=== PATIENT | female | born 1980 | race Two or more races ===

== ENCOUNTER 2021-09-02 12:12 | Inpatient (IN) | payer OTHER ==
[2021-09-02] MEDS ORDERED: MAGNESIUM HYDROX 2400MG/30ML ORAL SUSPENSION 30 ML CUP PO PRN (15:03)
[2021-09-02] MEDS ORDERED: ONDANSETRON *ODT* 4 MG TABLET SL PRN (15:03)
[2021-09-02] MEDS ORDERED: BISMUTH SUBSALICYLATE 524 MG/30 ML PO PRN (15:03)
[2021-09-02] MEDS ORDERED: NICOTINE POLACRILEX 4 MG GUM BUC PRN (15:03)
[2021-09-02] MEDS ORDERED: DICYCLOMINE HCL 10 MG CAPSULE PO PRN (15:03)
[2021-09-02] MEDS ORDERED: IBUPROFEN 400 MG TABLET (FP) PO PRN (15:03)
[2021-09-02] MEDS ORDERED: chlordiazePOXIDE HCL 25 MG CAPSULE PO ONE (15:03)
[2021-09-02] MEDS ORDERED: LOPERAMIDE HCL 2 MG CAPSULE PO PRN (15:03)
[2021-09-02] MEDS ORDERED: cloNIDine HCL 0.1 MG TABLET PO PRN (15:03)
[2021-09-02] MEDS ORDERED: BENZOCAINE/MENTHOL (CHLORASEPTIC ) LOZENGE MM PRN (15:03)
[2021-09-02] MEDS ORDERED: MAGNESIUM CITRATE 300 ML BOTTLE PO PRN (15:03)
[2021-09-02] MEDS ORDERED: ACETAMINOPHEN 325 MG TABLET (FP) PO PRN (15:03)
[2021-09-02] MEDS ORDERED: methaDONE HCL 10 MG TABLET (FOR DETOX USE ONLY) PO ONE (15:03)
[2021-09-02] MEDS ORDERED: MAG HYDROX/AL HYDROX/SIMETH 30 ML UNIT-DOSE CUP PO PRN (15:03)
[2021-09-02] MEDS ORDERED: ALBUTEROL SO4 HFA INHALER IH PRN (15:07)
[2021-09-02] MEDS ORDERED: COLLOIDAL OATMEAL 1 BAR EACH TP PRN (15:13)
[2021-09-02 16:10] VITALS: BMI 21.9
[2021-09-02] MEDS: chlordiazePOXIDE HCL 25 MG CAPSULE PO SCH ×2 (18:14→22:13)
[2021-09-02] MEDS: PRENATAL VITAMINS W/ FOLIC ACID TABLET (FP) PO SCH (18:18)
[2021-09-02] MEDS: NICOTINE 21 MG/24 HOURS TOPICAL PATCH TD SCH (18:18)
[2021-09-02] MEDS: NICOTINE 10 MG CARTRIDGE (INHALER) IH PRN (18:43)
[2021-09-02] MEDS ORDERED: MELATONIN 5 MG TABLETS PO SCH (22:00)
[2021-09-02] MEDS: THIAMINE HCL 100 MG TABLET (FP) PO SCH (22:13)
[2021-09-02] MEDS: METHOCARBAMOL 500 MG TABLET PO PRN (22:15)
[2021-09-03] MEDS: chlordiazePOXIDE HCL 25 MG CAPSULE PO PRN ×2 (01:18→15:41)
[2021-09-03] MEDS: chlordiazePOXIDE HCL 25 MG CAPSULE PO SCH ×4 (05:37→22:04)
[2021-09-03] MEDS: NICOTINE 10 MG CARTRIDGE (INHALER) IH PRN ×3 (05:48→22:07)
[2021-09-03] MEDS ORDERED: hydrOXYzine PAMOATE 50 MG CAPSULE (FP) PO PRN (09:22)
[2021-09-03] MEDS ORDERED: methaDONE HCL 10 MG TABLET (FOR DETOX USE ONLY) ONE (09:54)
[2021-09-03] MEDS: PRENATAL VITAMINS W/ FOLIC ACID TABLET (FP) PO SCH (10:16)
[2021-09-03] MEDS: NICOTINE 21 MG/24 HOURS TOPICAL PATCH TD SCH (10:17)
[2021-09-03] MEDS: hydrOXYzine PAMOATE 25 MG CAPSULE (FP) PO PRN (15:41)
[2021-09-03] MEDS: MELATONIN 5 MG TABLETS PO SCH (22:03)
[2021-09-03] MEDS: THIAMINE HCL 100 MG TABLET (FP) PO SCH (22:04)
[2021-09-03] MEDS: ACETAMINOPHEN 325 MG TABLET (FP) PO PRN (22:32)
[2021-09-04] MEDS: chlordiazePOXIDE HCL 25 MG CAPSULE PO SCH ×4 (05:59→22:20)
[2021-09-04] MEDS: hydrOXYzine PAMOATE 25 MG CAPSULE (FP) PO PRN ×4 (06:00→22:25)
[2021-09-04] MEDS: NICOTINE 10 MG CARTRIDGE (INHALER) IH PRN ×4 (06:01→22:27)
[2021-09-04] MEDS ORDERED: methaDONE HCL 10 MG TABLET (FOR DETOX USE ONLY) PO ONE (10:00)
[2021-09-04] MEDS: NICOTINE 21 MG/24 HOURS TOPICAL PATCH TD SCH (10:27)
[2021-09-04] MEDS: PRENATAL VITAMINS W/ FOLIC ACID TABLET (FP) PO SCH (10:28)
[2021-09-04] MEDS: ACETAMINOPHEN 325 MG TABLET (FP) PO PRN (10:29)
[2021-09-04 11:27] LABS: HEMATOCRIT 35.6 % (32.4-45.2); HEMOGLOBIN 11.8 GM/dL (10.7-15.3); MCH 32.1 pg (25.7-33.7); MCHC 33.2 g/dl (32.0-36.0); MEAN CELL VOLUME 96.6 fl (80-96); MEAN PLT VOLUME 7.8 fl (7.5-11.1); PLATELET COUNT 233 10^3/uL (134-434); RBC 3.68 M/mm3 (3.60-5.2); RDW 13.8 % (11.6-15.6); WHITE BLOOD COUNT 4.6 K/mm3 (4.0-10.0)
[2021-09-04 11:53] LABS: ALBUMIN 3.1 g/dl (3.4-5.0); CALCIUM 8.7 mg/dL (8.5-10.1)
[2021-09-04 11:54] LABS: BLOOD UREA NITROGEN 11.5 mg/dL (7-18); CREATININE 0.5 mg/dL (0.55-1.3)
[2021-09-04 11:56] LABS: BILIRUBIN,TOTAL 0.2 mg/dL (0.2-1); TOT PROT 7.2 g/dl (6.4-8.2)
[2021-09-04 14:12] LABS: SARS-CoV-2 NAA Not Detected (Not Detected)
[2021-09-04] MEDS: THIAMINE HCL 100 MG TABLET (FP) PO SCH (22:19)
[2021-09-04] MEDS: MELATONIN 5 MG TABLETS PO SCH (22:19)
[2021-09-04] MEDS: traZODone HCL 50 MG TABLET (FP) PO PRN (22:24)
[2021-09-04] MEDS: METHOCARBAMOL 500 MG TABLET PO PRN (22:25)
[2021-09-05] MEDS ORDERED: chlordiazePOXIDE HCL 10 MG CAPSULE PO PRN
[2021-09-05] MEDS: chlordiazePOXIDE HCL 10 MG CAPSULE PO SCH ×4 (06:34→22:13)
[2021-09-05] MEDS: METHOCARBAMOL 500 MG TABLET PO PRN ×3 (06:34→22:12)
[2021-09-05] MEDS: hydrOXYzine PAMOATE 25 MG CAPSULE (FP) PO PRN ×4 (06:34→22:11)
[2021-09-05] MEDS: ACETAMINOPHEN 325 MG TABLET (FP) PO PRN (07:26)
[2021-09-05] MEDS ORDERED: methaDONE HCL 10 MG TABLET (FOR DETOX USE ONLY) ONE (09:10)
[2021-09-05] MEDS: NICOTINE 10 MG CARTRIDGE (INHALER) IH PRN ×3 (10:32→22:17)
[2021-09-05] MEDS: NICOTINE 21 MG/24 HOURS TOPICAL PATCH TD SCH (10:32)
[2021-09-05] MEDS: PRENATAL VITAMINS W/ FOLIC ACID TABLET (FP) PO SCH (10:32)
[2021-09-05] MEDS: cloNIDine HCL 0.1 MG TABLET PO PRN (19:14)
[2021-09-05] MEDS: THIAMINE HCL 100 MG TABLET (FP) PO SCH (22:11)
[2021-09-05] MEDS: MELATONIN 5 MG TABLETS PO SCH (22:11)
[2021-09-05] MEDS: traZODone HCL 50 MG TABLET (FP) PO PRN (22:12)
[2021-09-06] MEDS: ACETAMINOPHEN 325 MG TABLET (FP) PO PRN (01:05)
[2021-09-06] MEDS: METHOCARBAMOL 500 MG TABLET PO PRN ×3 (04:08→22:08)
[2021-09-06] MEDS: hydrOXYzine PAMOATE 25 MG CAPSULE (FP) PO PRN ×3 (04:09→17:56)
[2021-09-06] MEDS: chlordiazePOXIDE HCL 10 MG CAPSULE PO SCH ×2 (06:20→17:57)
[2021-09-06] MEDS: NICOTINE 10 MG CARTRIDGE (INHALER) IH PRN ×3 (06:22→22:09)
[2021-09-06] MEDS ORDERED: methaDONE HCL 10 MG TABLET (FOR DETOX USE ONLY) PO ONE (10:00)
[2021-09-06] MEDS: NICOTINE 21 MG/24 HOURS TOPICAL PATCH TD SCH (10:10)
[2021-09-06] MEDS: PRENATAL VITAMINS W/ FOLIC ACID TABLET (FP) PO SCH (10:10)
[2021-09-06] MEDS: cloNIDine HCL 0.1 MG TABLET PO PRN ×2 (12:56→22:08)
[2021-09-06] MEDS: THIAMINE HCL 100 MG TABLET (FP) PO SCH (22:08)
[2021-09-06] MEDS: MELATONIN 5 MG TABLETS PO SCH (22:08)
[2021-09-06] MEDS: traZODone HCL 50 MG TABLET (FP) PO PRN (22:08)
[2021-09-07] MEDS ORDERED: chlordiazePOXIDE HCL 10 MG CAPSULE PO ONE (05:00)
[2021-09-07] MEDS: METHOCARBAMOL 500 MG TABLET PO PRN (05:25)
[2021-09-07] MEDS: hydrOXYzine PAMOATE 25 MG CAPSULE (FP) PO PRN (05:26)
[2021-09-07] MEDS: PRENATAL VITAMINS W/ FOLIC ACID TABLET (FP) PO SCH (09:55)
[2021-09-07] MEDS: NICOTINE 21 MG/24 HOURS TOPICAL PATCH TD SCH (09:55)
[2021-09-07] MEDS: NICOTINE 10 MG CARTRIDGE (INHALER) IH PRN (09:56)
[2021-09-07 10:04] VITALS: BP 101/69; PULSE 92; TEMP 96
== END 2021-09-07 10:25 | disposition home or self-care (01) | DRG 773 ==
LOC: YASAS 12:12 → Y3N 15:37
PROVIDERS: ADMIT Allergy & Immunology; ATTEND Allergy & Immunology
PROC: HZ2ZZZZ Detoxification Services for Substance Abuse Treatment (ICD-10-PCS; principal; 2021-09-02)
DX: F11.23 Opioid dependence with withdrawal (principal); F10.230 Alcohol dependence with withdrawal, uncomplicated; F17.210 Nicotine dependence, cigarettes, uncomplicated; F50.02 Anorexia nervosa, binge eating/purging type; F31.9 Bipolar disorder, unspecified; F41.9 Anxiety disorder, unspecified; I10 Essential (primary) hypertension; J45.909 Unspecified asthma, uncomplicated; L30.9 Dermatitis, unspecified; Z86.11 Personal history of tuberculosis; Z91.410 Personal history of adult physical and sexual abuse
CPT/HCPCS: 36415; 71046-TC-FY; 80053; 81025; 85027; 86780; 87811; 93005; 93010; C9803-CS; J0735; U0003; U0005

== ENCOUNTER 2022-06-30 11:20 | Inpatient (IN) | payer OTHER ==
[2022-06-30 12:44] VITALS: BMI 22.4
[2022-06-30] MEDS ORDERED: ALBUTEROL SO4 HFA INHALER IH PRN (19:32)
[2022-06-30] MEDS ORDERED: LORazepam 1 MG TABLET PO PRN (19:36)
[2022-06-30] MEDS ORDERED: cloNIDine HCL 0.1 MG TABLET ONE (19:50)
[2022-06-30] MEDS ORDERED: methaDONE HCL 10 MG TABLET (FOR DETOX USE ONLY) ONE (19:50)
[2022-06-30] MEDS ORDERED: LORazepam 1 MG TABLET ONE (19:51)
[2022-06-30] MEDS ORDERED: methaDONE HCL 10 MG TABLET (FOR DETOX USE ONLY) PO ONE (20:00)
[2022-06-30] MEDS: cloNIDine HCL 0.1 MG TABLET PO PRN (20:03)
[2022-06-30] MEDS ORDERED: NICOTINE POLACRILEX 2 MG GUM BC PRN (20:24)
[2022-06-30] MEDS: LORazepam 2 MG TABLET PO SCH (22:13)
[2022-07-01] MEDS: cloNIDine HCL 0.1 MG TABLET PO PRN ×4 (00:50→22:21)
[2022-07-01] MEDS: LORazepam 2 MG TABLET PO SCH ×2 (05:31→10:09)
[2022-07-01] MEDS: NICOTINE 21 MG/24 HOURS TOPICAL PATCH TD SCH (10:11)
[2022-07-01] MEDS: NICOTINE 10 MG CARTRIDGE (INHALER) IH PRN (10:12)
[2022-07-01] MEDS ORDERED: ONDANSETRON *ODT* 4 MG TABLET SL PRN (12:46)
[2022-07-01] MEDS ORDERED: NICOTINE 10 MG CARTRIDGE (INHALER) IH PRN (12:46)
[2022-07-01] MEDS ORDERED: DICYCLOMINE HCL 10 MG CAPSULE PO PRN (12:46)
[2022-07-01] MEDS ORDERED: LOPERAMIDE HCL 2 MG CAPSULE PO PRN (12:46)
[2022-07-01] MEDS ORDERED: POLYETHYLENE GLYCOL (HEALTHYLAX) 3350 17 GM PACKET PO PRN (12:46)
[2022-07-01] MEDS ORDERED: BISMUTH SUBSALICYLATE 524 MG/30 ML PO PRN (12:46)
[2022-07-01] MEDS ORDERED: BENZOCAINE/MENTHOL (CHLORASEPTIC ) LOZENGE MM PRN (12:46)
[2022-07-01] MEDS ORDERED: MAG HYDROX/AL HYDROX/SIMETH 30 ML UNIT-DOSE CUP PO PRN (12:46)
[2022-07-01] MEDS ORDERED: ACETAMINOPHEN 325 MG TABLET (FP) PO PRN (12:46)
[2022-07-01] MEDS ORDERED: MAGNESIUM HYDROX 2400MG/30ML ORAL SUSPENSION 30 ML CUP PO PRN (12:46)
[2022-07-01] MEDS ORDERED: IBUPROFEN 600 MG TABLET (FP) PO PRN (12:46)
[2022-07-01] MEDS ORDERED: IBUPROFEN 400 MG TABLET (FP) PO PRN (12:46)
[2022-07-01] MEDS ORDERED: NALOXONE HCL (KLOXXADO) 8 MG SPRAY NS PRN (12:46)
[2022-07-01] MEDS: METHOCARBAMOL 500 MG TABLET PO PRN (13:29)
[2022-07-01] MEDS: amLODIPine BESYLATE 5 MG TABLET (FP) PO SCH (13:29)
[2022-07-01] MEDS: hydrOXYzine PAMOATE 25 MG CAPSULE (FP) PO PRN ×2 (13:29→20:28)
[2022-07-01] MEDS: chlordiazePOXIDE HCL 25 MG CAPSULE PO SCH ×2 (16:52→22:20)
[2022-07-01] MEDS: chlordiazePOXIDE HCL 25 MG CAPSULE PO PRN (18:53)
[2022-07-01] MEDS ORDERED: MELATONIN 5 MG TABLETS PO SCH (22:00)
[2022-07-01] MEDS: THIAMINE HCL 100 MG TABLET (FP) PO SCH (22:19)
[2022-07-01] MEDS: MELATONIN 5 MG TABLETS PO PRN (22:20)
[2022-07-02] MEDS: chlordiazePOXIDE HCL 25 MG CAPSULE PO PRN ×2 (01:52→20:11)
[2022-07-02] MEDS ORDERED: LORazepam 1 MG TABLET PO SCH (05:00)
[2022-07-02] MEDS: chlordiazePOXIDE HCL 25 MG CAPSULE PO SCH ×4 (05:21→22:10)
[2022-07-02] MEDS: PRENATAL VITAMINS W/ FOLIC ACID TABLET (FP) PO SCH (09:53)
[2022-07-02] MEDS: METHOCARBAMOL 500 MG TABLET PO PRN ×2 (09:53→17:24)
[2022-07-02] MEDS: hydrOXYzine PAMOATE 25 MG CAPSULE (FP) PO PRN ×2 (09:53→17:24)
[2022-07-02] MEDS: amLODIPine BESYLATE 5 MG TABLET (FP) PO SCH (09:55)
[2022-07-02] MEDS: NICOTINE 21 MG/24 HOURS TOPICAL PATCH TD SCH (10:00)
[2022-07-02] MEDS ORDERED: methaDONE HCL 10 MG TABLET (FOR DETOX USE ONLY) PO ONE (10:00)
[2022-07-02 12:14] LABS: HEMATOCRIT 37.2 % (32.4-45.2); HEMOGLOBIN 12.8 GM/dL (10.7-15.3); MCH 35.2 pg (25.7-33.7); MCHC 34.2 g/dl (32.0-36.0); MEAN CELL VOLUME 102.6 fl (80-96); PLATELET COUNT 269 10^3/uL (134-434); RBC 3.63 M/mm3 (3.60-5.2); RDW 15.2 % (11.6-15.6); WHITE BLOOD COUNT 6.3 K/mm3 (4.0-10.0)
[2022-07-02 12:27] LABS: ALBUMIN 3.9 g/dl (3.4-5.0)
[2022-07-02 12:28] LABS: BLOOD UREA NITROGEN 12.4 mg/dL (7-18)
[2022-07-02 12:30] LABS: CREATININE 0.7 mg/dL (0.55-1.3)
[2022-07-02 12:32] LABS: BILIRUBIN,TOTAL 0.6 mg/dL (0.2-1)
[2022-07-02] MEDS: cloNIDine HCL 0.1 MG TABLET PO PRN ×2 (13:19→20:12)
[2022-07-02] MEDS: THIAMINE HCL 100 MG TABLET (FP) PO SCH (22:09)
[2022-07-02] MEDS: MELATONIN 5 MG TABLETS PO PRN (22:09)
[2022-07-02] MEDS: ACETAMINOPHEN 325 MG TABLET (FP) PO PRN (22:12)
[2022-07-03] MEDS ORDERED: chlordiazePOXIDE HCL 10 MG CAPSULE PO PRN
[2022-07-03] MEDS ORDERED: LORazepam 0.5 MG TABLET PO PRN
[2022-07-03] MEDS: METHOCARBAMOL 500 MG TABLET PO PRN ×3 (01:00→17:12)
[2022-07-03] MEDS: hydrOXYzine PAMOATE 25 MG CAPSULE (FP) PO PRN ×4 (02:59→22:06)
[2022-07-03] MEDS ORDERED: LORazepam 0.5 MG TABLET PO SCH (05:00)
[2022-07-03] MEDS: chlordiazePOXIDE HCL 10 MG CAPSULE PO SCH ×4 (05:22→22:06)
[2022-07-03] MEDS: amLODIPine BESYLATE 5 MG TABLET (FP) PO SCH (10:14)
[2022-07-03] MEDS: NICOTINE 10 MG CARTRIDGE (INHALER) IH PRN ×2 (10:14→17:24)
[2022-07-03] MEDS: PRENATAL VITAMINS W/ FOLIC ACID TABLET (FP) PO SCH (10:14)
[2022-07-03] MEDS: NICOTINE 21 MG/24 HOURS TOPICAL PATCH TD SCH (10:14)
[2022-07-03] MEDS: THIAMINE HCL 100 MG TABLET (FP) PO SCH (22:05)
[2022-07-03] MEDS: MELATONIN 5 MG TABLETS PO PRN (22:05)
[2022-07-04] MEDS: METHOCARBAMOL 500 MG TABLET PO PRN ×4 (01:18→20:20)
[2022-07-04] MEDS ORDERED: hydrOXYzine PAMOATE 25 MG CAPSULE (FP) PO ONE (02:14)
[2022-07-04] MEDS: hydrOXYzine PAMOATE 25 MG CAPSULE (FP) PO PRN ×2 (02:39→10:21)
[2022-07-04] MEDS: ACETAMINOPHEN 325 MG TABLET (FP) PO PRN ×2 (02:51→19:24)
[2022-07-04] MEDS ORDERED: LORazepam 0.5 MG TABLET PO ONE (05:00)
[2022-07-04] MEDS: chlordiazePOXIDE HCL 10 MG CAPSULE PO SCH ×2 (05:14→17:04)
[2022-07-04] MEDS: NICOTINE 10 MG CARTRIDGE (INHALER) IH PRN ×3 (05:16→14:07)
[2022-07-04] MEDS ORDERED: methaDONE HCL 10 MG TABLET (FOR DETOX USE ONLY) PO ONE (10:00)
[2022-07-04] MEDS: NICOTINE 21 MG/24 HOURS TOPICAL PATCH TD SCH (10:18)
[2022-07-04] MEDS: amLODIPine BESYLATE 5 MG TABLET (FP) PO SCH (10:21)
[2022-07-04] MEDS: PRENATAL VITAMINS W/ FOLIC ACID TABLET (FP) PO SCH (10:21)
[2022-07-04 21:19] VITALS: RESP 18
[2022-07-04] MEDS ORDERED: cloNIDine HCL 0.1 MG TABLET PO ONE (22:10)
[2022-07-04] MEDS: MELATONIN 5 MG TABLETS PO PRN (22:11)
[2022-07-04] MEDS: THIAMINE HCL 100 MG TABLET (FP) PO SCH (22:11)
[2022-07-05] MEDS: hydrOXYzine PAMOATE 25 MG CAPSULE (FP) PO PRN (01:10)
[2022-07-05] MEDS: METHOCARBAMOL 500 MG TABLET PO PRN (03:43)
[2022-07-05] MEDS ORDERED: chlordiazePOXIDE HCL 10 MG CAPSULE PO ONE (05:00)
[2022-07-05] MEDS: NICOTINE 10 MG CARTRIDGE (INHALER) IH PRN (05:40)
[2022-07-05 09:36] VITALS: BP 145/97; PULSE 102; TEMP 97.2
[2022-07-05] MEDS: amLODIPine BESYLATE 5 MG TABLET (FP) PO SCH (09:46)
[2022-07-05] MEDS: PRENATAL VITAMINS W/ FOLIC ACID TABLET (FP) PO SCH (09:46)
[2022-07-05] MEDS: NICOTINE 21 MG/24 HOURS TOPICAL PATCH TD SCH (09:47)
== END 2022-07-05 12:34 | disposition home or self-care (01) | DRG 773 ==
LOC: YASAS 11:20 → Y6N 19:43
PROVIDERS: ADMIT Allergy & Immunology; ATTEND Surgery
PROC: HZ2ZZZZ Detoxification Services for Substance Abuse Treatment (ICD-10-PCS; principal; 2022-06-30)
DX: F11.23 Opioid dependence with withdrawal (principal); F10.230 Alcohol dependence with withdrawal, uncomplicated; F17.210 Nicotine dependence, cigarettes, uncomplicated; F51.05 Insomnia due to other mental disorder; F41.9 Anxiety disorder, unspecified; F32.A Depression, unspecified; F43.10 Post-traumatic stress disorder, unspecified; F42.9 Obsessive-compulsive disorder, unspecified; F60.3 Borderline personality disorder; I10 Essential (primary) hypertension; J45.20 Mild intermittent asthma, uncomplicated; Z86.11 Personal history of tuberculosis
CPT/HCPCS: 36415; 80053; 81025; 85027; 86780; 93005; 93010; C9803-CS; U0003; U0005

== ENCOUNTER 2022-07-20 15:13 | Inpatient (IN) | payer OTHER ==
[2022-07-20 16:31] VITALS: BMI 21.6
[2022-07-20] MEDS ORDERED: IBUPROFEN 400 MG TABLET (FP) PO PRN (18:50)
[2022-07-20] MEDS ORDERED: LOPERAMIDE HCL 2 MG CAPSULE PO PRN (18:50)
[2022-07-20] MEDS ORDERED: ACETAMINOPHEN 325 MG TABLET (FP) PO PRN (18:50)
[2022-07-20] MEDS ORDERED: POLYETHYLENE GLYCOL (HEALTHYLAX) 3350 17 GM PACKET PO PRN (18:50)
[2022-07-20] MEDS ORDERED: BENZOCAINE/MENTHOL (CHLORASEPTIC ) LOZENGE MM PRN (18:50)
[2022-07-20] MEDS ORDERED: NALOXONE HCL (KLOXXADO) 8 MG SPRAY NS PRN (18:50)
[2022-07-20] MEDS ORDERED: DICYCLOMINE HCL 10 MG CAPSULE PO PRN (18:50)
[2022-07-20] MEDS ORDERED: chlordiazePOXIDE HCL 25 MG CAPSULE PO PRN (18:50)
[2022-07-20] MEDS ORDERED: MAGNESIUM HYDROX 2400MG/30ML ORAL SUSPENSION 30 ML CUP PO PRN (18:50)
[2022-07-20] MEDS ORDERED: BISMUTH SUBSALICYLATE 524 MG/30 ML PO PRN (18:50)
[2022-07-20] MEDS ORDERED: MAG HYDROX/AL HYDROX/SIMETH 30 ML UNIT-DOSE CUP PO PRN (18:50)
[2022-07-20] MEDS ORDERED: ALBUTEROL SO4 HFA INHALER IH PRN (18:54)
[2022-07-20] MEDS ORDERED: methaDONE HCL 10 MG TABLET (FOR DETOX USE ONLY) ONE (19:26)
[2022-07-20] MEDS ORDERED: methaDONE HCL 10 MG TABLET (FOR DETOX USE ONLY) PO ONE (19:30)
[2022-07-20] MEDS: NICOTINE 10 MG CARTRIDGE (INHALER) IH PRN (20:31)
[2022-07-20] MEDS: NICOTINE POLACRILEX 2 MG GUM BUC PRN (20:32)
[2022-07-20] MEDS: THIAMINE HCL 100 MG TABLET (FP) PO SCH (22:00)
[2022-07-20] MEDS: MELATONIN 5 MG TABLETS PO SCH (22:00)
[2022-07-20] MEDS: chlordiazePOXIDE HCL 25 MG CAPSULE PO SCH (22:01)
[2022-07-20] MEDS: METHOCARBAMOL 500 MG TABLET PO PRN (22:02)
[2022-07-20] MEDS: cloNIDine HCL 0.1 MG TABLET PO PRN (23:49)
[2022-07-21] MEDS: chlordiazePOXIDE HCL 25 MG CAPSULE PO SCH ×4 (04:03→22:05)
[2022-07-21] MEDS: METHOCARBAMOL 500 MG TABLET PO PRN ×3 (04:05→23:36)
[2022-07-21] MEDS: cloNIDine HCL 0.1 MG TABLET PO PRN ×3 (08:24→23:36)
[2022-07-21] MEDS: PRENATAL VITAMINS W/ FOLIC ACID TABLET (FP) PO SCH (10:19)
[2022-07-21] MEDS: NICOTINE 10 MG CARTRIDGE (INHALER) IH PRN ×3 (10:19→22:07)
[2022-07-21] MEDS: amLODIPine BESYLATE 5 MG TABLET (FP) PO SCH (10:19)
[2022-07-21] MEDS: NICOTINE POLACRILEX 2 MG GUM BUC PRN ×2 (10:26→22:07)
[2022-07-21] MEDS: MELATONIN 5 MG TABLETS PO SCH (22:05)
[2022-07-21] MEDS: traZODone HCL 50 MG TABLET (FP) PO SCH (22:05)
[2022-07-21] MEDS: THIAMINE HCL 100 MG TABLET (FP) PO SCH (22:05)
[2022-07-22] MEDS: chlordiazePOXIDE HCL 25 MG CAPSULE PO SCH ×4 (05:04→22:08)
[2022-07-22] MEDS: METHOCARBAMOL 500 MG TABLET PO PRN ×3 (08:37→23:22)
[2022-07-22] MEDS ORDERED: methaDONE HCL 10 MG TABLET (FOR DETOX USE ONLY) PO ONE (10:00)
[2022-07-22] MEDS: NICOTINE 10 MG CARTRIDGE (INHALER) IH PRN ×2 (10:21→22:08)
[2022-07-22] MEDS: PRENATAL VITAMINS W/ FOLIC ACID TABLET (FP) PO SCH (10:22)
[2022-07-22] MEDS: amLODIPine BESYLATE 5 MG TABLET (FP) PO SCH (10:22)
[2022-07-22] MEDS: NICOTINE POLACRILEX 2 MG GUM BUC PRN (10:27)
[2022-07-22] MEDS: cloNIDine HCL 0.1 MG TABLET PO PRN (20:53)
[2022-07-22] MEDS: THIAMINE HCL 100 MG TABLET (FP) PO SCH (22:08)
[2022-07-22] MEDS: traZODone HCL 50 MG TABLET (FP) PO SCH (22:08)
[2022-07-22] MEDS: MELATONIN 5 MG TABLETS PO SCH (22:08)
[2022-07-23] MEDS: IBUPROFEN 600 MG TABLET (FP) PO PRN (00:23)
[2022-07-23] MEDS: chlordiazePOXIDE HCL 10 MG CAPSULE PO PRN ×2 (00:24→14:37)
[2022-07-23] MEDS ORDERED: hydrOXYzine PAMOATE 25 MG CAPSULE (FP) PO ONE (01:38)
[2022-07-23] MEDS: chlordiazePOXIDE HCL 10 MG CAPSULE PO SCH ×4 (05:49→22:14)
[2022-07-23] MEDS: METHOCARBAMOL 500 MG TABLET PO PRN ×3 (05:50→22:14)
[2022-07-23] MEDS: NICOTINE 10 MG CARTRIDGE (INHALER) IH PRN ×2 (05:53→17:46)
[2022-07-23] MEDS: NICOTINE POLACRILEX 2 MG GUM BUC PRN (05:55)
[2022-07-23] MEDS: amLODIPine BESYLATE 5 MG TABLET (FP) PO SCH (10:16)
[2022-07-23] MEDS: PRENATAL VITAMINS W/ FOLIC ACID TABLET (FP) PO SCH (10:16)
[2022-07-23 12:23] LABS: HEMATOCRIT 41.6 % (32.4-45.2); HEMOGLOBIN 13.5 GM/dL (10.7-15.3); MCH 32.5 pg (25.7-33.7); MCHC 32.5 g/dl (32.0-36.0); MEAN PLT VOLUME 7.9 fl (7.5-11.1); PLATELET COUNT 328 10^3/uL (134-434); RBC 4.16 M/mm3 (3.60-5.2); RDW 13.8 % (11.6-15.6); WHITE BLOOD COUNT 5.7 K/mm3 (4.0-10.0)
[2022-07-23 13:09] LABS: ALBUMIN 3.5 g/dl (3.4-5.0); BLOOD UREA NITROGEN 12.4 mg/dL (7-18); CALCIUM 9.9 mg/dL (8.5-10.1)
[2022-07-23 13:12] LABS: CREATININE 0.6 mg/dL (0.55-1.3)
[2022-07-23 13:13] LABS: BILIRUBIN,TOTAL 0.3 mg/dL (0.2-1); TOT PROT 7.7 g/dl (6.4-8.2)
[2022-07-23] MEDS: MELATONIN 5 MG TABLETS PO SCH (22:13)
[2022-07-23] MEDS: traZODone HCL 50 MG TABLET (FP) PO SCH (22:14)
[2022-07-23] MEDS: THIAMINE HCL 100 MG TABLET (FP) PO SCH (22:14)
[2022-07-24] MEDS: IBUPROFEN 600 MG TABLET (FP) PO PRN ×2 (05:40→22:20)
[2022-07-24] MEDS: chlordiazePOXIDE HCL 10 MG CAPSULE PO SCH ×2 (05:40→17:45)
[2022-07-24] MEDS: METHOCARBAMOL 500 MG TABLET PO PRN ×2 (07:18→22:20)
[2022-07-24] MEDS ORDERED: METHOCARBAMOL 500 MG TABLET PO ONE (09:49)
[2022-07-24] MEDS ORDERED: methaDONE HCL 10 MG TABLET (FOR DETOX USE ONLY) PO ONE (10:00)
[2022-07-24] MEDS: amLODIPine BESYLATE 5 MG TABLET (FP) PO SCH (10:16)
[2022-07-24] MEDS: PRENATAL VITAMINS W/ FOLIC ACID TABLET (FP) PO SCH (10:16)
[2022-07-24] MEDS: NICOTINE 10 MG CARTRIDGE (INHALER) IH PRN ×2 (10:17→17:46)
[2022-07-24] MEDS: ACETAMINOPHEN 325 MG TABLET (FP) PO PRN ×2 (10:17→20:54)
[2022-07-24] MEDS: NICOTINE POLACRILEX 2 MG GUM BUC PRN ×3 (10:23→22:21)
[2022-07-24] MEDS: MELATONIN 5 MG TABLETS PO SCH (22:19)
[2022-07-24] MEDS: THIAMINE HCL 100 MG TABLET (FP) PO SCH (22:20)
[2022-07-24] MEDS: traZODone HCL 50 MG TABLET (FP) PO SCH (22:20)
[2022-07-25] MEDS ORDERED: chlordiazePOXIDE HCL 10 MG CAPSULE PO ONE (05:00)
[2022-07-25] MEDS: METHOCARBAMOL 500 MG TABLET PO PRN (05:24)
[2022-07-25] MEDS: IBUPROFEN 600 MG TABLET (FP) PO PRN (05:25)
[2022-07-25] MEDS: NICOTINE POLACRILEX 2 MG GUM BUC PRN (05:27)
[2022-07-25 09:05] VITALS: BP 122/86; PULSE 71; RESP 18; TEMP 97.8
[2022-07-25] MEDS: amLODIPine BESYLATE 5 MG TABLET (FP) PO SCH (09:32)
[2022-07-25] MEDS: PRENATAL VITAMINS W/ FOLIC ACID TABLET (FP) PO SCH (09:32)
[2022-07-25] MEDS ORDERED: METHOCARBAMOL 500 MG TABLET PO ONE (11:10)
[2022-07-25] MEDS: ACETAMINOPHEN 325 MG TABLET (FP) PO PRN (11:35)
== END 2022-07-25 12:12 | disposition home or self-care (01) | DRG 773 ==
LOC: YASAS 15:13 → Y3N 19:21
PROVIDERS: ADMIT Allergy & Immunology; ATTEND Surgery
PROC: HZ2ZZZZ Detoxification Services for Substance Abuse Treatment (ICD-10-PCS; principal; 2022-07-20)
DX: F11.23 Opioid dependence with withdrawal (principal); F10.230 Alcohol dependence with withdrawal, uncomplicated; F17.210 Nicotine dependence, cigarettes, uncomplicated; F41.9 Anxiety disorder, unspecified; G47.00 Insomnia, unspecified; I10 Essential (primary) hypertension; J45.909 Unspecified asthma, uncomplicated; L30.9 Dermatitis, unspecified; Z86.11 Personal history of tuberculosis; Z87.19 Personal history of other diseases of the digestive system
CPT/HCPCS: 36415; 80053; 81025; 85027; 86780; 87811; C9803-CS; U0003; U0005

== ENCOUNTER 2023-02-15 10:21 | Inpatient (IN) | payer OTHER ==
[2023-02-15 10:56] VITALS: BMI 25.4
[2023-02-15] MEDS ORDERED: ALBUTEROL SO4 HFA INHALER IH PRN (11:10)
[2023-02-15] MEDS ORDERED: NALOXONE HCL 0.4 MG/ML VIAL IM PRN (11:15)
[2023-02-15] MEDS ORDERED: DICYCLOMINE HCL 10 MG CAPSULE PO PRN (11:15)
[2023-02-15] MEDS ORDERED: MAGNESIUM HYDROX 2400MG/30ML ORAL SUSPENSION 30 ML CUP PO PRN (11:15)
[2023-02-15] MEDS ORDERED: BENZONATATE 200 MG CAPSULE PO PRN (11:15)
[2023-02-15] MEDS ORDERED: MAG HYDROX/AL HYDROX/SIMETH 30 ML UNIT-DOSE CUP PO PRN (11:15)
[2023-02-15] MEDS ORDERED: NALOXONE HCL (KLOXXADO) 8 MG SPRAY NS PRN (11:15)
[2023-02-15] MEDS ORDERED: BENZOCAINE/MENTHOL (CHLORASEPTIC ) LOZENGE MM PRN (11:15)
[2023-02-15] MEDS ORDERED: POLYETHYLENE GLYCOL (HEALTHYLAX) 3350 17 GM PACKET PO PRN (11:15)
[2023-02-15] MEDS ORDERED: P-EPHED 60MG/TRIPROLIDI 2.5MG TABLET PO PRN (11:15)
[2023-02-15] MEDS ORDERED: guaiFENesin 600 MG TABLET.ER (FP) PO PRN (11:15)
[2023-02-15] MEDS ORDERED: ACETAMINOPHEN 325 MG TABLET (FP) PO PRN (11:15)
[2023-02-15] MEDS ORDERED: IBUPROFEN 600 MG TABLET (FP) PO PRN (11:15)
[2023-02-15] MEDS ORDERED: IBUPROFEN 400 MG TABLET (FP) PO PRN (11:15)
[2023-02-15] MEDS ORDERED: BISMUTH SUBSALICYLATE 262 MG/15 ML BTL PO PRN (11:15)
[2023-02-15] MEDS ORDERED: LOPERAMIDE HCL 2 MG CAPSULE PO PRN (11:15)
[2023-02-15] MEDS ORDERED: ONDANSETRON *ODT* 4 MG TABLET SL PRN (11:15)
[2023-02-15] MEDS: NICOTINE POLACRILEX 2 MG GUM BUC PRN (15:20)
[2023-02-15] MEDS: hydrOXYzine PAMOATE 25 MG CAPSULE (FP) PO PRN (17:48)
[2023-02-15] MEDS ORDERED: cloNIDine HCL 0.1 MG TABLET PO PRN (17:57)
[2023-02-15] MEDS: amLODIPine BESYLATE 5 MG TABLET (FP) PO SCH (18:22)
[2023-02-15] MEDS ORDERED: methaDONE HCL 10 MG TABLET (FOR DETOX USE ONLY) PO ONE (18:30)
[2023-02-15] MEDS: chlordiazePOXIDE HCL 25 MG CAPSULE PO PRN (20:23)
[2023-02-15] MEDS ORDERED: traZODone HCL 100 MG TABLET (FP) PO SCH (22:00)
[2023-02-15] MEDS: MELATONIN 5 MG TABLETS PO SCH (22:51)
[2023-02-15] MEDS: THIAMINE HCL 100 MG TABLET (FP) PO SCH (22:51)
[2023-02-15] MEDS: chlordiazePOXIDE HCL 25 MG CAPSULE PO SCH (22:52)
[2023-02-16] MEDS: chlordiazePOXIDE HCL 25 MG CAPSULE PO PRN ×2 (00:57→13:46)
[2023-02-16] MEDS: chlordiazePOXIDE HCL 25 MG CAPSULE PO SCH ×4 (05:39→22:27)
[2023-02-16] MEDS: PRENATAL VITAMINS W/ FOLIC ACID TABLET (FP) PO SCH (09:43)
[2023-02-16] MEDS: amLODIPine BESYLATE 5 MG TABLET (FP) PO SCH (09:43)
[2023-02-16 10:50] LABS: POTASSIUM 4.2 mmol/L (3.5-5.1)
[2023-02-16 10:52] LABS: CALCIUM 8.7 mg/dL (8.5-10.1)
[2023-02-16 10:53] LABS: ALBUMIN 3.2 g/dl (3.4-5.0); BLOOD UREA NITROGEN 10.3 mg/dL (7-18)
[2023-02-16 10:56] LABS: CREATININE 0.6 mg/dL (0.55-1.3)
[2023-02-16 10:58] LABS: BILIRUBIN,TOTAL 0.3 mg/dL (0.2-1); TOT PROT 7.9 g/dl (6.4-8.2)
[2023-02-16] MEDS: NICOTINE 21 MG/24 HOURS TOPICAL PATCH TD SCH (13:46)
[2023-02-16] MEDS: hydrOXYzine PAMOATE 25 MG CAPSULE (FP) PO PRN (18:19)
[2023-02-16] MEDS: METHOCARBAMOL 500 MG TABLET PO PRN (18:19)
[2023-02-16] MEDS: MELATONIN 5 MG TABLETS PO SCH (22:27)
[2023-02-16] MEDS: THIAMINE HCL 100 MG TABLET (FP) PO SCH (22:27)
[2023-02-16] MEDS: traZODone HCL 50 MG TABLET (FP) PO SCH (22:27)
[2023-02-17] MEDS: hydrOXYzine PAMOATE 25 MG CAPSULE (FP) PO PRN ×2 (01:56→11:12)
[2023-02-17] MEDS: chlordiazePOXIDE HCL 25 MG CAPSULE PO SCH ×4 (06:00→22:32)
[2023-02-17] MEDS: amLODIPine BESYLATE 5 MG TABLET (FP) PO SCH (09:54)
[2023-02-17] MEDS: PRENATAL VITAMINS W/ FOLIC ACID TABLET (FP) PO SCH (09:54)
[2023-02-17] MEDS: NICOTINE 21 MG/24 HOURS TOPICAL PATCH TD SCH (09:54)
[2023-02-17] MEDS ORDERED: methaDONE HCL 10 MG TABLET (FOR DETOX USE ONLY) PO ONE (10:00)
[2023-02-17 10:03] LABS: HEMATOCRIT 38.6 % (32.4-45.2); HEMOGLOBIN 12.4 GM/dL (10.7-15.3); MCH 26.9 pg (25.7-33.7); MCHC 32.2 g/dl (32.0-36.0); MEAN CELL VOLUME 83.6 fl (80-96); MEAN PLT VOLUME 6.9 fl (7.5-11.1); PLATELET COUNT 365 10^3/uL (134-434); RBC 4.62 M/mm3 (3.60-5.2); RDW 16.3 % (11.6-15.6)
[2023-02-17] MEDS: METHOCARBAMOL 500 MG TABLET PO PRN ×2 (11:12→20:35)
[2023-02-17] MEDS: NICOTINE POLACRILEX 2 MG GUM BUC PRN ×2 (15:53→22:53)
[2023-02-17] MEDS ORDERED: GABAPENTIN 300 MG CAPSULE PO ONE (21:50)
[2023-02-17] MEDS: traZODone HCL 50 MG TABLET (FP) PO SCH (22:32)
[2023-02-17] MEDS: THIAMINE HCL 100 MG TABLET (FP) PO SCH (22:32)
[2023-02-17] MEDS: MELATONIN 5 MG TABLETS PO SCH (22:32)
[2023-02-18] MEDS ORDERED: chlordiazePOXIDE HCL 10 MG CAPSULE PO PRN
[2023-02-18] MEDS: hydrOXYzine PAMOATE 25 MG CAPSULE (FP) PO PRN ×2 (00:58→22:35)
[2023-02-18] MEDS: METHOCARBAMOL 500 MG TABLET PO PRN ×3 (02:56→22:49)
[2023-02-18] MEDS: chlordiazePOXIDE HCL 10 MG CAPSULE PO SCH ×4 (05:47→22:35)
[2023-02-18] MEDS: NICOTINE 21 MG/24 HOURS TOPICAL PATCH TD SCH (10:04)
[2023-02-18] MEDS: amLODIPine BESYLATE 5 MG TABLET (FP) PO SCH (10:04)
[2023-02-18] MEDS: PRENATAL VITAMINS W/ FOLIC ACID TABLET (FP) PO SCH (10:04)
[2023-02-18] MEDS ORDERED: GABAPENTIN 300 MG CAPSULE PO PRN (17:41)
[2023-02-18] MEDS: NICOTINE POLACRILEX 2 MG GUM BUC PRN ×2 (17:51→22:49)
[2023-02-18] MEDS ORDERED: GABAPENTIN 300 MG CAPSULE PO ONE (18:21)
[2023-02-18] MEDS ORDERED: GABAPENTIN 300 MG CAPSULE PO SCH (22:00)
[2023-02-18] MEDS: MELATONIN 5 MG TABLETS PO SCH (22:35)
[2023-02-18] MEDS: THIAMINE HCL 100 MG TABLET (FP) PO SCH (22:35)
[2023-02-18] MEDS: traZODone HCL 50 MG TABLET (FP) PO SCH (22:35)
[2023-02-19] MEDS: METHOCARBAMOL 500 MG TABLET PO PRN (04:04)
[2023-02-19] MEDS ORDERED: chlordiazePOXIDE HCL 10 MG CAPSULE PO SCH (05:00)
[2023-02-19] MEDS: hydrOXYzine PAMOATE 25 MG CAPSULE (FP) PO PRN (06:51)
[2023-02-19] MEDS: PRENATAL VITAMINS W/ FOLIC ACID TABLET (FP) PO SCH (09:11)
[2023-02-19] MEDS: amLODIPine BESYLATE 5 MG TABLET (FP) PO SCH (09:11)
[2023-02-19] MEDS: NICOTINE 21 MG/24 HOURS TOPICAL PATCH TD SCH (09:11)
[2023-02-19 09:52] VITALS: BP 113/76; PULSE 81; RESP 17; TEMP 97.8
[2023-02-19] MEDS ORDERED: GABAPENTIN 300 MG CAPSULE PO SCH (10:00)
[2023-02-19] MEDS ORDERED: methaDONE HCL 10 MG TABLET (FOR DETOX USE ONLY) PO ONE (10:00)
[2023-02-20] MEDS ORDERED: chlordiazePOXIDE HCL 10 MG CAPSULE PO ONE (05:00)
== END 2023-02-19 09:28 | disposition home or self-care (01) | DRG 773 ==
LOC: YASAS 10:21 → Y3N 11:32
PROVIDERS: ADMIT Allergy & Immunology; ATTEND Surgery
PROC: HZ2ZZZZ Detoxification Services for Substance Abuse Treatment (ICD-10-PCS; principal; 2023-02-15)
DX: F11.23 Opioid dependence with withdrawal (principal); F10.230 Alcohol dependence with withdrawal, uncomplicated; F17.210 Nicotine dependence, cigarettes, uncomplicated; F41.9 Anxiety disorder, unspecified; F43.10 Post-traumatic stress disorder, unspecified; G47.00 Insomnia, unspecified; I10 Essential (primary) hypertension; Z20.822 Contact with and (suspected) exposure to COVID-19; Z62.810 Personal history of physical and sexual abuse in childhood; Z86.11 Personal history of tuberculosis
CPT/HCPCS: 36415; 80053; 81025; 85027; 86780; 87635; 87811

== ENCOUNTER 2023-04-24 14:20 | Inpatient (IN) | payer OTHER ==
[2023-04-24 15:08] VITALS: BMI 24.1
[2023-04-24] MEDS ORDERED: BENZOCAINE/MENTHOL (CHLORASEPTIC ) LOZENGE MM PRN (16:31)
[2023-04-24] MEDS ORDERED: IBUPROFEN 400 MG TABLET (FP) PO PRN (16:31)
[2023-04-24] MEDS ORDERED: BISMUTH SUBSALICYLATE 524 MG/30 ML PO PRN (16:31)
[2023-04-24] MEDS ORDERED: NALOXONE HCL 0.4 MG/ML VIAL IM PRN (16:31)
[2023-04-24] MEDS ORDERED: NALOXONE HCL (KLOXXADO) 8 MG SPRAY NS PRN (16:31)
[2023-04-24] MEDS ORDERED: MAGNESIUM HYDROX 2400MG/30ML ORAL SUSPENSION 30 ML CUP PO PRN (16:31)
[2023-04-24] MEDS ORDERED: MAG HYDROX/AL HYDROX/SIMETH 30 ML UNIT-DOSE CUP PO PRN (16:31)
[2023-04-24] MEDS ORDERED: ONDANSETRON *ODT* 4 MG TABLET SL PRN (16:31)
[2023-04-24] MEDS ORDERED: DICYCLOMINE HCL 10 MG CAPSULE PO PRN (16:31)
[2023-04-24] MEDS ORDERED: P-EPHED 60MG/TRIPROLIDI 2.5MG TABLET PO PRN (16:31)
[2023-04-24] MEDS ORDERED: guaiFENesin 600 MG TABLET.ER (FP) PO PRN (16:31)
[2023-04-24] MEDS ORDERED: BENZONATATE 200 MG CAPSULE PO PRN (16:31)
[2023-04-24] MEDS ORDERED: POLYETHYLENE GLYCOL (HEALTHYLAX) 3350 17 GM PACKET PO PRN (16:31)
[2023-04-24] MEDS ORDERED: LOPERAMIDE HCL 2 MG CAPSULE PO PRN (16:31)
[2023-04-24] MEDS ORDERED: methaDONE HCL 10 MG TABLET (FOR DETOX USE ONLY) PO ONE (18:00)
[2023-04-24] MEDS: diazePAM 5 MG TABLET PO PRN (18:26)
[2023-04-24] MEDS: diazePAM 5 MG TABLET PO SCH ×2 (18:31→22:21)
[2023-04-24] MEDS ORDERED: ALBUTEROL SO4 HFA INHALER IH PRN (18:45)
[2023-04-24] MEDS: IBUPROFEN 600 MG TABLET (FP) PO PRN (21:05)
[2023-04-24] MEDS ORDERED: MELATONIN 5 MG TABLETS PO SCH (22:00)
[2023-04-24] MEDS ORDERED: traZODone HCL 50 MG TABLET (FP) PO ONE (22:00)
[2023-04-24] MEDS: AMOXICILLIN 500 MG CAPSULE (FP) PO SCH (22:19)
[2023-04-24] MEDS: THIAMINE HCL 100 MG TABLET (FP) PO SCH (22:20)
[2023-04-24] MEDS: cloNIDine HCL 0.1 MG TABLET PO PRN (22:22)
[2023-04-24] MEDS: NICOTINE POLACRILEX 2 MG GUM BUC PRN (22:30)
[2023-04-24] MEDS: METHOCARBAMOL 500 MG TABLET PO PRN (22:42)
[2023-04-25] MEDS: diazePAM 5 MG TABLET PO PRN ×3 (01:38→20:15)
[2023-04-25] MEDS: diazePAM 5 MG TABLET PO SCH ×4 (05:21→22:42)
[2023-04-25] MEDS: IBUPROFEN 600 MG TABLET (FP) PO PRN ×3 (05:31→22:41)
[2023-04-25] MEDS: NICOTINE POLACRILEX 2 MG GUM BUC PRN ×2 (05:34→10:28)
[2023-04-25] MEDS: ACETAMINOPHEN 325 MG TABLET (FP) PO PRN ×2 (08:10→17:06)
[2023-04-25] MEDS ORDERED: GABAPENTIN 300 MG CAPSULE PO PRN (08:43)
[2023-04-25] MEDS: NICOTINE 21 MG/24 HOURS TOPICAL PATCH TD SCH (10:20)
[2023-04-25] MEDS: PRENATAL VITAMINS W/ FOLIC ACID TABLET (FP) PO SCH (10:20)
[2023-04-25] MEDS: amLODIPine BESYLATE 5 MG TABLET (FP) PO SCH (10:23)
[2023-04-25] MEDS: AMOXICILLIN 500 MG CAPSULE (FP) PO SCH ×2 (10:23→22:42)
[2023-04-25] MEDS: METHOCARBAMOL 500 MG TABLET PO PRN (10:24)
[2023-04-25] MEDS: GABAPENTIN 100 MG CAPSULE PO PRN (12:32)
[2023-04-25] MEDS: METHOCARBAMOL 750 MG TABLET PO PRN ×2 (14:16→22:42)
[2023-04-25] MEDS: cloNIDine HCL 0.1 MG TABLET PO PRN (14:16)
[2023-04-25] MEDS: THIAMINE HCL 100 MG TABLET (FP) PO SCH (22:42)
[2023-04-25] MEDS: traZODone HCL 50 MG TABLET (FP) PO SCH (22:42)
[2023-04-26] MEDS: cloNIDine HCL 0.1 MG TABLET PO PRN (04:10)
[2023-04-26] MEDS: diazePAM 5 MG TABLET PO SCH ×3 (05:32→22:12)
[2023-04-26] MEDS: GABAPENTIN 100 MG CAPSULE PO PRN ×2 (05:33→23:52)
[2023-04-26] MEDS: METHOCARBAMOL 750 MG TABLET PO PRN ×3 (06:26→23:52)
[2023-04-26] MEDS: AMOXICILLIN 500 MG CAPSULE (FP) PO SCH ×2 (09:16→22:12)
[2023-04-26] MEDS: NICOTINE 21 MG/24 HOURS TOPICAL PATCH TD SCH (09:17)
[2023-04-26] MEDS: amLODIPine BESYLATE 5 MG TABLET (FP) PO SCH (09:18)
[2023-04-26] MEDS: PRENATAL VITAMINS W/ FOLIC ACID TABLET (FP) PO SCH (09:18)
[2023-04-26] MEDS: IBUPROFEN 600 MG TABLET (FP) PO PRN (09:18)
[2023-04-26] MEDS: diazePAM 5 MG TABLET PO PRN (09:19)
[2023-04-26] MEDS ORDERED: methaDONE HCL 10 MG TABLET (FOR DETOX USE ONLY) PO ONE (10:00)
[2023-04-26] MEDS: NICOTINE POLACRILEX 2 MG GUM BUC PRN ×2 (13:25→17:40)
[2023-04-26] MEDS: hydrOXYzine PAMOATE 25 MG CAPSULE (FP) PO PRN (15:42)
[2023-04-26] MEDS: ACETAMINOPHEN 325 MG TABLET (FP) PO PRN (17:39)
[2023-04-26] MEDS: traZODone HCL 50 MG TABLET (FP) PO SCH (22:12)
[2023-04-26] MEDS: THIAMINE HCL 100 MG TABLET (FP) PO SCH (22:12)
[2023-04-27] MEDS: diazePAM 5 MG TABLET PO SCH ×2 (05:46→17:13)
[2023-04-27] MEDS: IBUPROFEN 600 MG TABLET (FP) PO PRN ×2 (05:52→13:35)
[2023-04-27] MEDS: PRENATAL VITAMINS W/ FOLIC ACID TABLET (FP) PO SCH (10:19)
[2023-04-27] MEDS: NICOTINE 21 MG/24 HOURS TOPICAL PATCH TD SCH (10:20)
[2023-04-27] MEDS: diazePAM 5 MG TABLET PO PRN (10:20)
[2023-04-27] MEDS: AMOXICILLIN 500 MG CAPSULE (FP) PO SCH ×2 (10:20→22:13)
[2023-04-27] MEDS: amLODIPine BESYLATE 5 MG TABLET (FP) PO SCH (10:20)
[2023-04-27] MEDS: NICOTINE POLACRILEX 2 MG GUM BUC PRN ×2 (10:25→17:17)
[2023-04-27] MEDS: GABAPENTIN 100 MG CAPSULE PO PRN (17:16)
[2023-04-27] MEDS: METHOCARBAMOL 750 MG TABLET PO PRN (22:13)
[2023-04-27] MEDS: hydrOXYzine PAMOATE 25 MG CAPSULE (FP) PO PRN (22:13)
[2023-04-27] MEDS: traZODone HCL 50 MG TABLET (FP) PO SCH (22:13)
[2023-04-27] MEDS: THIAMINE HCL 100 MG TABLET (FP) PO SCH (22:13)
[2023-04-27] MEDS: ACETAMINOPHEN 325 MG TABLET (FP) PO PRN (22:17)
[2023-04-28] MEDS ORDERED: diazePAM 5 MG TABLET PO ONE (06:00)
[2023-04-28] MEDS ORDERED: methaDONE HCL 10 MG TABLET (FOR DETOX USE ONLY) PO ONE (10:00)
[2023-04-28] MEDS: METHOCARBAMOL 750 MG TABLET PO PRN ×2 (10:14→22:17)
[2023-04-28] MEDS: PRENATAL VITAMINS W/ FOLIC ACID TABLET (FP) PO SCH (10:14)
[2023-04-28] MEDS: NICOTINE 21 MG/24 HOURS TOPICAL PATCH TD SCH (10:14)
[2023-04-28] MEDS: amLODIPine BESYLATE 5 MG TABLET (FP) PO SCH (10:14)
[2023-04-28] MEDS: AMOXICILLIN 500 MG CAPSULE (FP) PO SCH ×2 (10:14→22:17)
[2023-04-28] MEDS: ACETAMINOPHEN 325 MG TABLET (FP) PO PRN (10:15)
[2023-04-28] MEDS: NICOTINE POLACRILEX 2 MG GUM BUC PRN (10:18)
[2023-04-28] MEDS: IBUPROFEN 600 MG TABLET (FP) PO PRN ×2 (14:58→22:19)
[2023-04-28] MEDS: GABAPENTIN 100 MG CAPSULE PO PRN ×2 (15:00→23:15)
[2023-04-28] MEDS: traZODone HCL 50 MG TABLET (FP) PO SCH (22:17)
[2023-04-28] MEDS: THIAMINE HCL 100 MG TABLET (FP) PO SCH (22:17)
[2023-04-28] MEDS: hydrOXYzine PAMOATE 25 MG CAPSULE (FP) PO PRN (22:17)
[2023-04-29] MEDS: PRENATAL VITAMINS W/ FOLIC ACID TABLET (FP) PO SCH (09:26)
[2023-04-29] MEDS: amLODIPine BESYLATE 5 MG TABLET (FP) PO SCH (09:26)
[2023-04-29] MEDS: AMOXICILLIN 500 MG CAPSULE (FP) PO SCH (09:26)
[2023-04-29] MEDS: NICOTINE 21 MG/24 HOURS TOPICAL PATCH TD SCH (09:26)
[2023-04-29 09:53] VITALS: BP 101/78; PULSE 110; RESP 16; TEMP 97.7
== END 2023-04-29 09:50 | disposition home or self-care (01) | DRG 773 ==
LOC: YASAS 14:20 → Y3N 17:08
PROVIDERS: ADMIT Allergy & Immunology; ATTEND Surgery
PROC: HZ2ZZZZ Detoxification Services for Substance Abuse Treatment (ICD-10-PCS; principal; 2023-04-24)
DX: F11.23 Opioid dependence with withdrawal (principal); F10.230 Alcohol dependence with withdrawal, uncomplicated; F17.210 Nicotine dependence, cigarettes, uncomplicated; F41.1 Generalized anxiety disorder; F32.A Depression, unspecified; F60.3 Borderline personality disorder; I10 Essential (primary) hypertension; J45.20 Mild intermittent asthma, uncomplicated; K04.7 Periapical abscess without sinus; Z86.11 Personal history of tuberculosis
CPT/HCPCS: 81025; 87635; 87811